=== PATIENT | male | born 1950 ===

== ENCOUNTER 2020-01-11 00:09 | Inpatient (IN) ==
[2020-01-11] MEDS ORDERED: ONDANSETRON 4 MG/2 ML VIAL IV PRN (02:39)
[2020-01-11] MEDS ORDERED: DOCUSATE SODIUM 100 MG CAPSULE PO PRN (02:39)
[2020-01-11 02:56] LABS: Basophils % 0.2 % (0.0-0.8); Hemoglobin 12.5 GM/DL (14.0-18.0); Immature Granulocytes % 0.8 %; Immature Granulocytes Absolute 0.15 #; Lymphocytes # 0.6 10*3/uL (1.4-4.0); Lymphocytes % 2.9 % (21.2-54.2); Mean Corpuscular HGB Conc 34.7 GM/DL (32-36); Mean Corpuscular Volume 84.7 FL (87-102); Mean Platelet Volume 10.1 FL (9.6-12.0); Monocytes % 5.1 % (1.7-12.7); Platelet Count 164 T/CUMM (130-400); Red Blood Count 4.25 MC/CUMM (3.8-5.5); Red Cell Distribution Width 12.8 % (9.3-17.3); White Blood Count 19.5 T/CUMM (4-12)
[2020-01-11 03:27] LABS: Albumin 3.4 G/DL (3.4-5.0); Bilirubin,Total 0.9 MG/DL (0.2-1.0); Calcium 8.9 MG/DL (8.5-10.1); Osmolality,Calculated 284.3 MOS/KG (273-304); Total Protein 7.2 G/DL (6.4-8.3)
[2020-01-11] MEDS: cefTRIAXone 2,000 MG in SYRINGE 1 EACH IV SCH (03:48)
[2020-01-11] MEDS: SODIUM CHLORIDE 0.9% 1,000 ML IV SCH ×2 (03:48→12:22)
[2020-01-11 04:12] LABS: Lymphocytes 2 % (20-55); Segmented Neutrophils 96 % (50-85); Total Cells Counted 100
[2020-01-11 04:13] LABS: Microcytosis 1+; Platelet Estimate Normal; Polychromasia Slight
[2020-01-11 04:14] LABS: Ovalocytes Slight
[2020-01-11] MEDS ORDERED: PIPERACILLIN/TAZOBACTAM 3,375 MG in SODIUM CHLORIDE 0.9% 100 ML IV SCH (08:00)
[2020-01-11 08:11] LABS: Bilirubin,Urine Negative (Negative); Blood, Urine Moderate mg/dL (Negative); Glucose,Urine (UA) Negative (Negative); Ketones,Urine Negative (Negative); Nitrite,Urine Positive (Negative); Protein,Urine Negative; RBC,Urine 15 /HPF (0-4); Urine Appearance CLEAR (Clear); Urine Color Amber (Yellow); Urine Specific Gravity 1.017 (1.001-1.035); WBC,Urine 65 /HPF (0-6)
[2020-01-11] MEDS: ENOXAPARIN 40 MG/0.4 ML SYRINGE SUBCUT SCH (08:37)
[2020-01-11] MEDS: INSULIN LISPRO 100 UNIT/ML SUBCUT SCH ×3 (08:38→21:40)
[2020-01-11] MEDS ORDERED: MAGNESIUM SULF RIDER 2 GM in PREMIX 1 EACH IV PRN (09:56)
[2020-01-11] MEDS ORDERED: MAGNESIUM SULF RIDER 4 GM in PREMIX 1 EACH IV PRN (09:56)
[2020-01-11] MEDS: MULTIVITAMIN (CENTRUM) TABLET PO SCH (10:57)
[2020-01-11] MEDS: MELOXICAM 7.5 MG TABLET PO SCH (10:57)
[2020-01-11] MEDS: ASPIRIN EC 81 MG TABLET PO SCH (10:57)
[2020-01-11] MEDS: FOLIC ACID 1 MG TABLET PO SCH (10:57)
[2020-01-11] MEDS: ENALAPRIL 20 MG TABLET PO SCH (10:57)
[2020-01-11] MEDS: amLODIPine 10 MG TABLET PO SCH (10:57)
[2020-01-11] MEDS: ALFUZOSIN 10 MG TABLET PO SCH (12:19)
[2020-01-11] MEDS: ACETAMINOPHEN 325 MG TABLET PO PRN ×2 (17:24→21:39)
[2020-01-12] MEDS: cefTRIAXone 2,000 MG in SYRINGE 1 EACH IV SCH (02:43)
[2020-01-12] MEDS: SODIUM CHLORIDE 0.9% 1,000 ML IV SCH ×4 (04:11→20:27)
[2020-01-12] MEDS: ACETAMINOPHEN 325 MG TABLET PO PRN ×2 (04:16→20:28)
[2020-01-12 06:25] LABS: Basophils # 0.1 10*3/uL (0.0-0.2); Basophils % 0.2 % (0.0-0.8); Hematocrit 33.9 VOL% (42.0-52.0); Hemoglobin 11.5 GM/DL (14.0-18.0); Immature Granulocytes % 5.2 %; Immature Granulocytes Absolute 1.39 #; Lymphocytes # 0.9 10*3/uL (1.4-4.0); Lymphocytes % 3.3 % (21.2-54.2); Mean Corpuscular HGB Conc 33.9 GM/DL (32-36); Mean Corpuscular Volume 85.8 FL (87-102); Mean Platelet Volume 10.5 FL (9.6-12.0); Monocytes % 6.5 % (1.7-12.7); Neutrophils % 84.8 % (38.7-73.9); Platelet Count 137 T/CUMM (130-400); Red Blood Count 3.95 MC/CUMM (3.8-5.5); Red Cell Distribution Width 13.1 % (9.3-17.3); White Blood Count 26.8 T/CUMM (4-12)
[2020-01-12 06:44] LABS: Calcium 8.6 MG/DL (8.5-10.1); Osmolality,Calculated 282.3 MOS/KG (273-304)
[2020-01-12 07:09] LABS: Band Neutrophils 19 % (0-10); Lymphocytes 4 % (20-55); Metamyelocytes 1 %; Segmented Neutrophils 65 % (50-85); Total Cells Counted 100
[2020-01-12 07:10] LABS: Anisocytosis Slight; Platelet Estimate Adequate
[2020-01-12] MEDS: INSULIN LISPRO 100 UNIT/ML SUBCUT SCH ×5 (08:04→19:31)
[2020-01-12] MEDS ORDERED: INFLUENZA VIRUS VACCINE 0.5 ML SYRINGE IM ONE (09:00)
[2020-01-12] MEDS: metFORMIN 500 MG TABLET PO SCH ×3 (09:16→17:17)
[2020-01-12] MEDS: POTASSIUM CHLORIDE 20 MEQ TABLET PO SCH ×3 (09:16→17:17)
[2020-01-12] MEDS: FOLIC ACID 1 MG TABLET PO SCH (09:17)
[2020-01-12] MEDS: ASPIRIN EC 81 MG TABLET PO SCH (09:17)
[2020-01-12] MEDS: MULTIVITAMIN (CENTRUM) TABLET PO SCH (09:17)
[2020-01-12] MEDS: MELOXICAM 7.5 MG TABLET PO SCH (09:17)
[2020-01-12] MEDS: ENOXAPARIN 40 MG/0.4 ML SYRINGE SUBCUT SCH (09:17)
[2020-01-12] MEDS: ENALAPRIL 20 MG TABLET PO SCH (09:18)
[2020-01-12] MEDS: amLODIPine 10 MG TABLET PO SCH (09:18)
[2020-01-12] MEDS: LEVOFLOXACIN INJ 500 MG in PREMIX 1 EACH IV SCH (09:18)
[2020-01-12] MEDS: ALFUZOSIN 10 MG TABLET PO SCH (10:55)
[2020-01-13 06:56] LABS: Basophils % 0.2 % (0.0-0.8); Eosinophils # 0.3 10*3/uL (0.0-0.87); Eosinophils % 1.3 % (0.00-10.9); Hematocrit 35.1 VOL% (42.0-52.0); Hemoglobin 11.6 GM/DL (14.0-18.0); Immature Granulocytes Absolute 0.39 #; Lymphocytes # 1.1 10*3/uL (1.4-4.0); Lymphocytes % 5.8 % (21.2-54.2); Mean Corpuscular Volume 87.3 FL (87-102); Mean Platelet Volume 10.8 FL (9.6-12.0); Monocytes % 7.5 % (1.7-12.7); Neutrophils % 83.2 % (38.7-73.9); Platelet Count 130 T/CUMM (130-400); Red Blood Count 4.02 MC/CUMM (3.8-5.5); Red Cell Distribution Width 13.2 % (9.3-17.3); White Blood Count 19.6 T/CUMM (4-12)
[2020-01-13 07:08] LABS: Calcium 8.7 MG/DL (8.5-10.1); Osmolality,Calculated 279.4 MOS/KG (273-304)
[2020-01-13 07:15] LABS: Hypochromasia 1+; Microcytosis 1+; Ovalocytes Slight; Platelet Estimate Normal
[2020-01-13] MEDS: INSULIN LISPRO 100 UNIT/ML SUBCUT SCH ×3 (07:30→16:45)
[2020-01-13] MEDS: SODIUM CHLORIDE 0.9% 1,000 ML IV SCH (08:11)
[2020-01-13] MEDS: LEVOFLOXACIN INJ 500 MG in PREMIX 1 EACH IV SCH (09:52)
[2020-01-13] MEDS: metFORMIN 500 MG TABLET PO SCH (09:53)
[2020-01-13] MEDS: ASPIRIN EC 81 MG TABLET PO SCH (09:53)
[2020-01-13] MEDS: MULTIVITAMIN (CENTRUM) TABLET PO SCH (09:53)
[2020-01-13] MEDS: MELOXICAM 7.5 MG TABLET PO SCH (09:54)
[2020-01-13] MEDS: ENOXAPARIN 40 MG/0.4 ML SYRINGE SUBCUT SCH (09:54)
[2020-01-13] MEDS: FOLIC ACID 1 MG TABLET PO SCH (09:54)
[2020-01-13] MEDS: amLODIPine 10 MG TABLET PO SCH (09:54)
[2020-01-13] MEDS: ENALAPRIL 20 MG TABLET PO SCH (09:55)
[2020-01-13] MEDS: ALFUZOSIN 10 MG TABLET PO SCH (09:55)
[2020-01-13 16:13] VITALS: BP 145/77
== END 2020-01-13 16:50 | disposition home or self-care (01) | DRG 690 ==
LOC: N.3E → SUATTDRO 01:37 → OBSVTOIN 01:37
PROVIDERS: ADMIT Internal Medicine; ATTEND Internal Medicine